=== PATIENT | female | born 1975 | race Caucasian/White ===

== ENCOUNTER → 2024-08-12 11:14 | Outpatient (REF) | payer OTHER, SELFPAY | LOC: HWRAD 11:14 | PROVIDERS: ATTENDING PHYSICIAN Physician Assistant Medical | DX: G44.52 New daily persistent headache (NDPH) (principal) | CPT/HCPCS: 70450 ==

== ENCOUNTER → 2024-08-22 13:54 | Outpatient (REF) | payer OTHER, SELFPAY | LOC: HWWDC 13:54 | PROVIDERS: ATTENDING PHYSICIAN Obstetrics & Gynecology; FAMILY PHYSICIAN Physician Assistant Medical | DX: Z12.31 Encounter for screening mammogram for malignant neoplasm of breast (principal) | CPT/HCPCS: 77063; 77067 ==